=== PATIENT | female | born 1980 | race Caucasian/White ===

== ENCOUNTER 2020-03-05 22:21 | Emergency (ER) | payer OTHER ==
[~2020-03-05] VITALS: Ht 170.2 cm; Wt 89.8 kg
[2020-03-05] MEDS ORDERED: NOHOMEMEDICATIONS (22:28)
[2020-03-06] MEDS ORDERED: DOXYCYCLINE 10100 MG PO (00:55)
[2020-03-06] MEDS ORDERED: TRAMADOL 50 MG50 MG PO (00:55)
[2020-03-06 01:21] VITALS: BP 148/87
== END 2020-03-06 01:22 | disposition home or self-care (01) ==
LOC: ER 22:21
DX: L02.415 Cutaneous abscess of right lower limb (principal)